=== PATIENT | male | born 1955 | race Caucasian/White ===

== ENCOUNTER → 2017-02-20 | Outpatient (CLI) | payer BC, OTHER ==
[~2017-02-20] MED LIST: APAP/BUTALBITAL1 TA1 PO; FLEXERIL10 MG PO; IBU-8800 MG PO; LORTAB 5/500 501 TAB PO; NOMEDS XX; SULINDAC150 MG PO
--- NOTE | 2017-02-20 15:57 | RADIOLOGY REPORT PS360 ---
CT ABD PELVIS W/WO CONTRAST INDICATION: LEFT FLANK PAIN HX OF KIDNEY CANCER ORDERING PHYSICIAN: Ignacio Hardin MD PATIENT AGE: 61 years COMPARISON: 10/07/2013 TECHNIQUE: Axial images are obtained without and with contrast. Sagittal and coronal reformatted images are reviewed as well. Patient experience nausea and vomiting following contrast administration with thin reported no problems. However, the patient returned approximately 30 minutes after the exam was over and had one hive along the left upper chest/neck area. Patient was given 25 mg by mouth of Benadryl. No new hives or other symptoms reported. FINDINGS: A partially calcified granuloma is present in the right lung base. There are multiple hepatic cysts present as before. The largest cyst is in the right hepatic lobe inferiorly measuring 5.7 x 5.2 cm. Previously this measured 3.8 x 3.7 cm. The cysts have increased in size compared to the previous exam. There has been prior right nephrectomy. No evidence of tumor recurrence in the nephrectomy bed. The left kidney shows compensatory hypertrophy as expected. No renal calculi or hydronephrosis. No ureteral calculi. There is a cortical cyst along the superior pole the left kidney at 10 mm. This was readily appreciable on the previous exam. Unremarkable left adrenal gland. The right adrenal gland is not identified and is presumed to have been removed. The spleen and pancreas are unremarkable. The bowel gas pattern is nonspecific. There are some fluid-filled nondistended loops of small bowel with a few scattered air-fluid levels. There is a right inguinal hernia. On the unenhanced images the small bowel loops were present at the orifice of the hernia. On the immediate post enhanced images however, there was a loop of small bowel which extended into the right inguinal hernia. On the delayed images the small bowel were again noted at the orifice of the hernia. There are few scattered small lymph nodes in the retroperitoneum nonspecific and not significantly changed. The inferior vena cava has an unremarkable appearance as does the left renal vein. Scattered small nodes are present in the mesentery's nonspecific. No pelvic mass or focal inflammatory change. No evidence of appendicitis or diverticulitis. No acute bony anomalies are evident. IMPRESSION: 1. Status post right nephrectomy. Left kidney and adrenal gland has an unremarkable 2. Multiple hepatic cysts which have increased. 3. Right inguinal hernia containing fat. Small bowel does extend into the hernia intermittently. 4. Nonspecific bowel gas pattern with fluid-filled loops of small bowel noted and could be due to enteritis.
== END ==
LOC: RAD 09:32
DX: R10.9 Unspecified abdominal pain (principal); Z85.528 Personal history of other malignant neoplasm of kidney
CPT/HCPCS: Q9967

== ENCOUNTER → 2017-03-03 | Outpatient (CLI) | payer BC, OTHER | LOC: UTC.OUT 11:25 | DX: Z02.4 Encounter for examination for driving license (principal) ==